=== PATIENT | male | born 1960 | race Caucasian/White ===

== ENCOUNTER 2018-06-12 06:06 | Day surgery (SDC) | payer OTHER ==
[~2018-06-12] VITALS: Ht 176.5 cm; Wt 99.8 kg
[2018-06-12] VITALS (8 sets, daily range): BP systolic 106–127; BP diastolic 60–77
[~2018-06-12 06:06] MED LIST: AMLODIPINE BESYL5 MG ORAL; BUPROPION HCL150 M3 ORAL; CATAPRES0.2 MG ORAL; Clindamycin 600mg/D5W 50ml IV ONE; LOSARTAN-HCTZ1 EAC1 ORAL; METOPROLOL TAR100 M1 ORAL; NORCO 5-325 TA1 EACH ORAL; OMEPRAZOLE40 M1 ORAL; celeBREX 200mg Cap **SURGERY PATIENTS ONLY ORAL ONE; oxyCONTIN 20mg tab ORAL ONE
[2018-06-12] MEDS ORDERED: Morphine Sulfate PF 10 ML ONE (06:32)
[2018-06-12] MEDS ORDERED: Bupivacaine 0.5% Inj 30 ml vial INJ ONE (06:32)
[2018-06-12] MEDS ORDERED: EPINEPHrine 1mg/1ml Amp ONE (06:32)
[2018-06-12] MEDS ORDERED: Kenalog-40 1ml Vial ONE (06:32)
[2018-06-12] MEDS ORDERED: Ketorolac 30mg Inj ONE ×2 (06:32→07:22)
[2018-06-12] MEDS ORDERED: Lidocaine 1% 10mg/ml/Epi 0.005mg/ml 30ml vial INJ ONE (06:32)
[2018-06-12] MEDS ORDERED: LR 1000ml 1,000 ML IVLG SCH (06:43)
--- NOTE | 2018-06-12 06:43 | Anethesia Preoperative Eval ---
Anesthesia Pre-op PMH/ROS General Date of Evaluation: Jun 12, 2018 Anesthesiologist: Juve ASA Score: ASA 3 Mallampati Score Class I : Soft palate, uvula, fauces, pillars visible Class II: Soft palate, uvula, fauces visible Class III: Soft palate, base of uvula visible Class IV: Only hard plate visible Mallampati Classification: Class III Surgeon: Markell Diagnosis: Left knee pain Surgical Procedure: LEft knee arthroscopy Anesthesia History: none Family History: no anesthesia problems Allergies: Coded Allergies: PENICILLINS (Verified Allergy, Unknown, 06/11/18) does not know reaction Medications: see eMAR Patient NPO?: Yes NPO Date: Jun 12, 2018 NPO Time: 22:00 Past Medical History Cardiovascular: Reports: HTN, other - HLD; Denies: CAD, [place], valve dz, arrhythmia Pulmonary: Reports: NATHALIA - severe, uses CPAP; Denies: asthma, COPD, other Gastrointestinal/Genitourinary: Reports: GERD; Denies: CRI, ESRD, other Neurologic/Psychiatric: Denies: dementia, CVA, depression/anxiety, TIA, other Endocrine: Denies: DM, hypothyroidism, steroids, other HEENT: Denies: cataract (L), cataract (R), glaucoma, [place] (L), [place] (R), other Hematology/Immune: Denies: anemia, DVT, bleeding disorder, other Musculoskeletal/Integumentary: Reports: OA; Denies: RA, DJD, DDD, edema, other Other: obesity - morbid PSxH Narrative: right hand sx Anesthesia Pre-op Phys. Exam Physician Exam see chart Constitutional: NAD Cardiovascular: RRR Respiratory: CTA Airway Exam Mallampati Score: Class III MO: limited ROM: limited Teeth: intact Anesthesia Pre-op A/P Labs see chart Studies Pre-op Studies: EKG - sr Risk Assessment & Plan Assessment: ASA III Plan: GA Status Change Before Surgery: No Pre-Antibiotics Drug: Clindamycin 600mg Given Within 1 Hr of Incision: Yes Chani Grayson MD Jun 12, 2018 06:43
[2018-06-12] MEDS ORDERED: Hydromorphone 0.5mg/0.5ml inj IVP PRN (06:45)
[2018-06-12] MEDS ORDERED: fentaNYL 100 mcg/2 mL IV PRN (06:45)
[2018-06-12] MEDS ORDERED: Ketorolac 30mg Inj IV PRN (06:45)
[2018-06-12] MEDS ORDERED: Midazolam 2mg/2ml Inj IVP PRN (06:45)
[2018-06-12] MEDS ORDERED: DiphenhydrAMINE 50mg/ml Inj IVP PRN (06:45)
[2018-06-12] MEDS ORDERED: LORazepam Inj 2mg/ml 1ml IV PRN (06:45)
[2018-06-12] MEDS ORDERED: Clindamycin 600mg 50 ML IV ONE (06:50)
[2018-06-12] MEDS ORDERED: Zemuron 50mg/5ml Inj IV ONE (06:50)
[2018-06-12] MEDS ORDERED: NS Irrig 4000ml IRRIG ONE (07:00)
[2018-06-12] MEDS ORDERED: LR 1000ml ONE (07:00)
[2018-06-12] MEDS ORDERED: Lidocaine 1% MPF 10mg/ml 5ml ONE (07:04)
[2018-06-12] MEDS ORDERED: Propofol 200mg/20ml IV ONE ×2 (07:04→07:05)
[2018-06-12] MEDS ORDERED: Midazolam 2mg/2ml Inj ONE (07:05)
[2018-06-12] MEDS ORDERED: fentaNYL 100 mcg/2 mL IV ONE (07:05)
--- NOTE | 2018-06-12 07:08 | Pre-Procedure Note/Attestation ---
Pre-Procedure Note/Attestation Complete Prior to Procedure Planned Procedure: left Procedure Narrative: knee arthroscopy possible menisectomy, synovectomy, chondraplasty Indications for Procedure Pre-Operative Diagnosis: left internal derangment Attestation I attest that I discussed the nature of the procedure; its benefits; risks and complications; and alternatives (and the risks and benefits of such alternatives ), prior to the procedure, with the patient (or the patient's legal cash applications representative). I attest that, if there was a reasonable possibility of needing a blood transfusion, the patient (or the patient's legal cash applications representative) was given the [facility] standardized written summary, pursuant to the [place] Blood Safety Act ([place] Health and Safety Code # 1645, as amended). I attest that I re-evaluated the patient just prior to the surgery and that there has been no change in the patient's H&P, except as documented below: Parish Guillaume MD Jun 12, 2018 07:07
--- NOTE | 2018-06-12 07:08 | Operative Note - PDOC ---
Operative Note Operative Note Pre-op Diagnosis: left internal derangment Procedure: see op report Post-op Diagnosis: same as pre-op plus Operative Findings: consistent w/pre-op dx studies Anesthesia: general Specimen: none Complications: none Condition: stable Estimated Blood Loss: none Implant(s) used?: No Parish Guillaume MD Jun 12, 2018 07:08
[2018-06-12] MEDS ORDERED: Norco 5mg/325mg tab ORAL PRN (07:15)
[2018-06-12] MEDS ORDERED: Tylenol #3 tab (300mg/30mg) ORAL PRN (07:15)
[2018-06-12] MEDS ORDERED: HYDROmorphone 1mg/ml Carpuject SUBQ PRN (07:15)
[2018-06-12] MEDS ORDERED: D5 1/2NS 1,000 ML IV SCH (07:15)
[2018-06-12] MEDS ORDERED: Dexamethasone 4mg/ml vial ONE (07:22)
--- NOTE | 2018-06-12 08:01 | Immediate Post-Op Evaluation ---
Immediate Post-Op Evalulation Immediate Post-Op Evalulation Procedure: Left knee arthroscopy Date of Evaluation: Jun 12, 2018 Time of Evaluation: 08:03 IV Fluids: 500 Blood Products: 0 Estimated Blood Loss: 0 Urinary Output: 0 Blood Pressure Systolic: 115 Blood Pressure Diastolic: 70 Pulse Rate: 71 Respiratory Rate: 17 O2 Sat by Pulse Oximetry: 99 Temperature (Fahrenheit): 97 Pain Score (1-10): 0 Nausea: No Vomiting: No Complications 0 Patient Status: awake, reacts, patent, none Hydration Status: adequate Drug: Clindamycin 600mg Given Within 1 Hr of Incision: Yes Time Given: 07:00 Chani Grayson MD Jun 12, 2018 08:01
--- NOTE | 2018-06-12 08:01 | 48 Hour Post Anesthesia Eval ---
Post Anesthesia Evaluation Procedure: Left knee arthroscopy Date of Evaluation: Jun 12, 2018 Airway: patent Nausea: No Vomiting: No Pain Intensity: 0 Hydration Status: adequate Cardiopulmonary Status: at baseline Mental Status/LOC: patient returned to baseline Post-Anesthesia Complications: 0 Follow-up care needed: ready to discharge Chani Grayson MD Jun 12, 2018 08:01
--- NOTE | 2018-06-12 17:02 | Operative Note - Dictated ---
DATE OF OPERATION: 06/12/2018 PREOPERATIVE DIAGNOSIS: Left knee internal derangement secondary to meniscal tear. POSTOPERATIVE DIAGNOSES: 1. Left knee medial plica. 2. Left knee grade 3 chondral damage, medial femoral condyle. 3. Left knee partial tear, posterior horn medial meniscus. PROCEDURES: 1. Left knee diagnostic arthroscopy. 2. Left knee partial medial meniscectomy. 3. Left knee medial lateral and patellofemoral compartment synovectomy, excision of medial plica. 4. Left knee chondroplasty, medial femoral condyle. SURGEON: Parish Guillaume M.D. ANESTHESIA: General. INDICATION FOR PROCEDURE: The patient is a pleasant gentleman who has had progressive left knee pain. He had an MRI consistent with possible meniscal tear as well as chondral damage. Given that he failed conservative treatment, elected to undergo left knee diagnostic arthroscopy. The risks, limitations, expectations, and complications of the procedure were discussed in detail. All questions addressed. DESCRIPTION OF PROCEDURE: After informed consent was obtained, the patient was brought to the operating room. The patient was placed under general anesthesia. Tourniquet was applied to the left proximal thigh. Clindamycin was administered. Time-out was performed. A 0.25% Marcaine injected. Left knee portal sites were injected with 1% lidocaine with epinephrine. Esmarch was used to exsanguinate the extremity. Inferolateral stab incision made. Trocar was introduced into the patellofemoral compartment. There was hypertrophic fat pad and synovial tissue as well as medial plica on the medial compartment. Medial compartment was entered. Hypertrophic fat pad and synovial tissue was encountered. There was grade 2, grade 3 chondral damage of medial femoral condyle. There was a small tear of the posterior horn of medial meniscus. Medial working portal was established. At this point, the meniscus was probed and partial meniscectomy using a shaver was performed. Once that was done, attention turned towards the chondral damage. The chondroplasty of the chondral flaps was performed down to stable tissue. Given the size, nature, and configuration of the chondral damage, formal microfracture was not performed. The medial plica along with the fat pad and synovial tissue, medial compartment, intercondylar notch, lateral compartment was debrided. ACL was probed and noted to be intact. Lateral compartment was entered meniscal chondral damage. At this point, the camera was repositioned in the patellofemoral compartment. Excision of medial plica and fat pad was completed. Once that was done, the instruments were removed. Portal sites were closed with 3-0 Monocryl sutures. Compression dressing was applied. The patient was awoken and taken to recovery room with stable signs. ESTIMATED BLOOD LOSS: None. COMPLICATIONS: None. SPECIMENS: None. IMPLANTS: None. Parish Guillaume M.D. DR: Ness JOB#: [id number] CC:
== END 2018-06-12 10:00 | disposition home or self-care (01) ==
LOC: SUR 06:06
DX: M23.252 Derangement of posterior horn of lateral meniscus due to old tear or injury, left knee (principal); M94.9 Disorder of cartilage, unspecified; M67.52 Plica syndrome, left knee; F41.9 Anxiety disorder, unspecified; F32.9 Major depressive disorder, single episode, unspecified; I10 Essential (primary) hypertension; E78.5 Hyperlipidemia, unspecified; G47.33 Obstructive sleep apnea (adult) (pediatric); E66.01 Morbid (severe) obesity due to excess calories; Z87.19 Personal history of other diseases of the digestive system; Z88.0 Allergy status to penicillin
CPT/HCPCS: 29881; J0171; J0690; J1100; J1885; J2250; J2274; J2704; J3010; J3301; J3490; 94003; 94150; S0077

== ENCOUNTER 2018-08-14 07:14 | Day surgery (SDC) | payer OTHER ==
[2018-08-14] VITALS (10 sets, daily range): BP systolic 77–133; BP diastolic 50–88
[~2018-08-14] VITALS: Ht 177.8 cm; Wt 99.8 kg
--- NOTE | 2018-08-14 08:16 | Pre-Procedure Note/Attestation ---
Pre-Procedure Note/Attestation Complete Prior to Procedure Planned Procedure: right Procedure Narrative: shoulder arthroscopy, sad, possible rc repair Indications for Procedure Pre-Operative Diagnosis: right shoulder internal derangement Attestation I attest that I discussed the nature of the procedure; its benefits; risks and complications; and alternatives (and the risks and benefits of such alternatives ), prior to the procedure, with the patient (or the patient's legal accounts receivable representative). I attest that, if there was a reasonable possibility of needing a blood transfusion, the patient (or the patient's legal accounts receivable representative) was given the [facility] standardized written summary, pursuant to the [place] Blood Safety Act ([place] Health and Safety Code # 1645, as amended). I attest that I re-evaluated the patient just prior to the surgery and that there has been no change in the patient's H&P, except as documented below: Parish Guillaume MD Aug 14, 2018 08:16
--- NOTE | 2018-08-14 08:17 | Operative Note - PDOC ---
Operative Note Operative Note Pre-op Diagnosis: right shoulder internal derangement Procedure: see op report Post-op Diagnosis: same as pre-op plus Operative Findings: consistent w/pre-op dx studies Anesthesia: regional Specimen: none Complications: none Condition: stable Estimated Blood Loss: none Implant(s) used?: No Parish Guillaume MD Aug 14, 2018 08:17
[2018-08-14] MEDS ORDERED: oxyCONTIN 20mg tab ORAL ONE (09:12)
[2018-08-14] MEDS ORDERED: celeBREX 200mg Cap **SURGERY PATIENTS ONLY ORAL ONE (09:12)
[2018-08-14] MEDS ORDERED: Kenalog-40 1ml Vial ONE (11:13)
[2018-08-14] MEDS ORDERED: Ketorolac 30mg Inj ONE ×2 (11:13→11:27)
[2018-08-14] MEDS ORDERED: Morphine Sulfate PF 10 ML ONE (11:13)
[2018-08-14] MEDS ORDERED: Bupivacaine w/Epi 0.5% 30ml Vial INJ ONE (11:14)
[2018-08-14] MEDS ORDERED: Clindamycin 600mg 50 ML IV ONE (11:14)
[2018-08-14] MEDS ORDERED: Zemuron 50mg/5ml Inj IV ONE (11:14)
[2018-08-14] MEDS ORDERED: EPINEPHrine 1mg/1ml Amp ONE (11:19)
[2018-08-14] MEDS ORDERED: Lidocaine 1% MPF 10mg/ml 5ml ONE (11:20)
[2018-08-14] MEDS ORDERED: fentaNYL 100 mcg/2 mL IV ONE (11:20)
[2018-08-14] MEDS ORDERED: Propofol 200mg/20ml IV ONE ×2 (11:20→13:31)
[2018-08-14] MEDS ORDERED: Midazolam 2mg/2ml Inj ONE (11:21)
[2018-08-14] MEDS ORDERED: Ropivacaine 5mg/ml Vial 30ml INJ ONE (11:24)
[2018-08-14] MEDS ORDERED: Metoclopramide 10mg/2ml Inj ONE (11:27)
[2018-08-14] MEDS ORDERED: Dexamethasone 4mg/ml vial ONE (11:27)
[2018-08-14] MEDS ORDERED: LR 1000ml 1,000 ML IVLG SCH (11:38)
--- NOTE | 2018-08-14 11:38 | Anethesia Preoperative Eval ---
Anesthesia Pre-op PMH/ROS General Date of Evaluation: Aug 14, 2018 Anesthesiologist: Juve ASA Score: ASA 2 Mallampati Score Class I : Soft palate, uvula, fauces, pillars visible Class II: Soft palate, uvula, fauces visible Class III: Soft palate, base of uvula visible Class IV: Only hard plate visible Mallampati Classification: Class III Surgeon: Markell Diagnosis: Right shoulder impingement Surgical Procedure: Right shoulder arthroscopy Anesthesia History: none Family History: no anesthesia problems Allergies: Coded Allergies: PENICILLINS (Verified Allergy, Unknown, 06/11/18) does not know reaction Medications: see eMAR Patient NPO?: Yes NPO Date: Aug 13, 2018 NPO Time: 22:00 Past Medical History Cardiovascular: Reports: HTN, other - HLD; Denies: CAD, [place], valve dz, arrhythmia Pulmonary: Denies: asthma, COPD, NATHALIA, other Gastrointestinal/Genitourinary: Reports: GERD; Denies: CRI, ESRD, other Neurologic/Psychiatric: Denies: dementia, CVA, depression/anxiety, TIA, other Endocrine: Denies: DM, hypothyroidism, steroids, other HEENT: Denies: cataract (L), cataract (R), glaucoma, [place] (L), [place] (R), other Hematology/Immune: Denies: anemia, DVT, bleeding disorder, other Musculoskeletal/Integumentary: Reports: OA, other - gout; Denies: RA, DJD, DDD, edema Other: obesity PSxH Narrative: Septoplasty, T&A, right knee sx, lumbar sx, right hand sx Anesthesia Pre-op Phys. Exam Physician Exam Last Vital Signs Date Time Temp Pulse Resp B/P (MAP) Pulse Ox O2 Delivery O2 Flow Rate FiO2 08/14/18 08:21 97.6 79 18 133/88 96 Room Air Constitutional: NAD Cardiovascular: RRR Respiratory: CTA Airway Exam Mallampati Score: Class III MO: limited ROM: limited Teeth: intact Anesthesia Pre-op A/P Labs see chart Studies Pre-op Studies: EKG - sr Risk Assessment & Plan Assessment: ASA II Plan: GA with right interscalene nerve blkock Status Change Before Surgery: No Pre-Antibiotics Drug: clindamycin 600mg Given Within 1 Hr of Incision: Yes Chani Grayson MD Aug 14, 2018 11:38
[2018-08-14] MEDS ORDERED: LR 1000ml ONE (11:45)
[2018-08-14] MEDS ORDERED: LORazepam Inj 2mg/ml 1ml IV PRN (11:45)
[2018-08-14] MEDS ORDERED: Ketorolac 30mg Inj IV PRN (11:45)
[2018-08-14] MEDS ORDERED: Hydromorphone 0.5mg/0.5ml inj IVP PRN (11:45)
[2018-08-14] MEDS ORDERED: Midazolam 2mg/2ml Inj IVP PRN (11:45)
[2018-08-14] MEDS ORDERED: NS Irrig 4000ml IRRIG ONE (11:45)
[2018-08-14] MEDS ORDERED: Metoclopramide 10mg/2ml Inj IVP PRN (11:45)
[2018-08-14] MEDS ORDERED: fentaNYL 100 mcg/2 mL IV PRN (11:45)
[2018-08-14] MEDS ORDERED: DiphenhydrAMINE 50mg/ml Inj IVP PRN (11:45)
[2018-08-14] MEDS ORDERED: Glycopyrrolate 0.2mg/ml 1ml Vial ONE (13:33)
[2018-08-14] MEDS ORDERED: Neostigmine 1mg/ml 10ml Inj ONE (13:34)
--- NOTE | 2018-08-14 13:42 | Immediate Post-Op Evaluation ---
Immediate Post-Op Evalulation Immediate Post-Op Evalulation Procedure: Right shoulder arthroscopy Date of Evaluation: Aug 14, 2018 Time of Evaluation: 13:29 IV Fluids: 1L Blood Products: 0 Estimated Blood Loss: min Urinary Output: 0 Blood Pressure Systolic: 109 Blood Pressure Diastolic: 65 Pulse Rate: 73 Respiratory Rate: 16 O2 Sat by Pulse Oximetry: 97 Temperature (Fahrenheit): 97 Pain Score (1-10): 0 Nausea: No Vomiting: No Complications 0 Patient Status: awake, reacts, patent, none Hydration Status: adequate Drug: Clindamycin 600mg Given Within 1 Hr of Incision: Yes Time Given: 11:55 Chani Grayson MD Aug 14, 2018 13:42
--- NOTE | 2018-08-14 13:43 | 48 Hour Post Anesthesia Eval ---
Post Anesthesia Evaluation Procedure: Right shoulder arthroscopy Date of Evaluation: Aug 14, 2018 Airway: patent Nausea: No Vomiting: No Pain Intensity: 0 Hydration Status: adequate Cardiopulmonary Status: at baseline Mental Status/LOC: patient returned to baseline Post-Anesthesia Complications: 0 Follow-up care needed: ready to discharge Chani Grayson MD Aug 14, 2018 13:43
[2018-08-14] MEDS ORDERED: D5 1/2NS 1,000 ML IV SCH (17:01)
[2018-08-14] MEDS ORDERED: Tylenol #3 tab (300mg/30mg) ORAL PRN (17:01)
[2018-08-14] MEDS ORDERED: HYDROmorphone 1mg/ml Carpuject SUBQ PRN (17:01)
[2018-08-14] MEDS ORDERED: Norco 5mg/325mg tab ORAL PRN (17:01)
--- NOTE | 2018-08-14 17:45 | Operative Note - Dictated ---
DATE OF OPERATION: 08/14/2018 POSTOPERATIVE DIAGNOSIS: Right shoulder traumatic bursitis/impingement syndrome. POSTOPERATIVE DIAGNOSES: 1. Grade 1 superior labral tear. 2. Partial tear of subscapularis and impingement syndrome/bursitis. PROCEDURES: 1. Right shoulder diagnostic arthroscopy. 2. Right shoulder superior labral debridement/repair. 3. Right shoulder partial subscap tendon tear, debridement/repair. 4. Subacromial decompression bursectomy. SURGEON: Parish Guillaume M.D. ANESTHESIA: Interscalene with general. INDICATION FOR PROCEDURE: The patient is a pleasant gentleman, who has had progressive right shoulder pain, difficulty with activities, and failed conservative treatment. He had MRI, which showed moderate tendinosis, impingement syndrome or bursitis. Given that he failed conservative treatment and he elected to undergo right shoulder arthroscopy and possible subacromial decompression and bursectomy. Risks, limitations, expectations, and complications or procedure were discussed in detail. All questions addressed. DESCRIPTION OF PROCEDURE: After informed consent was obtained, the patient was brought to the operative room. The patient was placed under general anesthesia. Right shoulder was prepped and draped in sterile manner. Time-out was performed. A posterolateral stab incision was then made. Trocar was introduced into the glenohumeral joint. There is no significant chondral damage. The anterior labrum was intact along the superior labrum, had some fraying of the posterior superior aspect of the labrum. Biceps tendon had a small tear, but not intrasubstance of the tendon. There appeared to be a partial tear to the upper border of the subscapularis. Undersurface of the acromion was relatively intact. Medial working portal was established. The posterior superior labrum tear was debrided down to stable rim of tissue. There is no gross instability of the labrum or the glenoid. Therefore, formal fixation was not required. Partial tear of the superior portion of the subscap was debrided. The footprint and the anchor was still intact. Therefore, formal repair was not required. At this point, the camera was placed in the subacromial space. There was hypertrophic bursal tissue in the acromial spur. Acromioplasty was started from lateral to medial and completed from posterior to anterior. The bursectomy was completed. Once that was done, the bursal side of the rotator cuff was evaluated and noted to be intact. At this point, the instruments were removed. Portal sites were closed with 3-0 Monocryl suture. Steri-strips and sterile dressing were applied. ESTIMATED BLOOD LOSS: None. COMPLICATIONS: None. SPECIMENS: None. IMPLANTS: None. Parish Guillaume M.D. DR: VAISHALI JOB#: [id number] CC:
== END 2018-08-14 15:35 | disposition home or self-care (01) ==
LOC: SUR 07:14
DX: M75.41 Impingement syndrome of right shoulder (principal); M75.51 Bursitis of right shoulder; S43.431A Superior glenoid labrum lesion of right shoulder, initial encounter; M75.111 Incomplete rotator cuff tear or rupture of right shoulder, not specified as traumatic
CPT/HCPCS: 29823; 29826; J0171; J1100; J1885; J2250; J2274; J2405; J2704; J2710; J2765; J2795; J3010; J3301; 94003; 94150; S0077